=== PATIENT | female | born 1990 | race Asian ===

== ENCOUNTER 2020-01-18 05:13 | Emergency (ER) | payer BC ==
[~2020-01-18] VITALS: Ht 165.1 cm; Wt 57.6 kg
[2020-01-18 05:21] VITALS: Ht 165.1 cm; Wt 57.6 kg
[2020-01-18 06:23] VITALS: BP 100/70
== END 2020-01-18 06:23 | disposition home or self-care (01) ==
LOC: ED 05:13
DX: N64.4 Mastodynia (principal)